=== PATIENT | female | born 1965 | race Caucasian/White ===

== ENCOUNTER 2019-05-10 09:53 | Emergency (ER) | payer SELFPAY ==
[~2019-05-10] VITALS: Ht 157.5 cm; Wt 84.1 kg
[2019-05-10 09:56] VITALS: BP 124/68; PULSE 68; RESP 17; Ht 157.5 cm; Wt 84.1 kg
--- NOTE | 2019-05-10 10:13 | ERD ---
ER Documentation Chief Complaint Chief Complaint RECHECK FOR ABCESS I&D 3 DAYS AGO HPI Patient is a 53-year-old female who presents for a wound check of her abscess. She had an incision and drainage done 3 days ago with packing placed. She came back for a wound check. She is currently taking antibiotics as well. She has had no fevers. ROS All systems reviewed and are negative except as per history of present illness. PMhx/Soc Medical and Surgical Hx: pt denies Medical Hx FmHx Family History: No diabetes Physical Exam Vitals Vital Signs Date Temp Pulse Resp B/P (MAP) Pulse Ox O2 O2 Flow FiO2 Time Delivery Rate 05/10/19 97.6 68 17 124/68 99 09:56 (86) Physical Exam Const: No acute distress Head: Atraumatic Eyes: Normal Conjunctiva ENT: Normal External Ears, Nose and Mouth. Neck: Full range of motion. No meningismus. Resp: Clear to auscultation bilaterally Cardio: Regular rate and rhythm, no murmurs Abd: Soft, non tender, non distended. Normal bowel sounds Skin: Recently cut abscess to the mid upper back with mild surrounding erythema and packing in place Back: No midline or flank tenderness Ext: No cyanosis, or edema Neur: Awake and alert Psych: Normal Mood and Affect Procedures/MDM Packing of the back abscess was removed by myself at the bedside without difficulty. There was no blood loss. Wound care and dressing was applied. Wound shows no evidence of infection, foreign body, neurologic injury, vascular injury, open joint or tendon laceration. Patient appropriate for outpatient follow up. Departure Diagnosis: Primary Impression: Abscess Condition: Fair Patient Instructions: Abscess, Incision And Drainage Referrals: Your doctor Additional Instructions: Llame al doctor nombrado scotty (Referral Sources) MAANA y susana nayeli SADE PARA DENTRO DE NAYELI SEMANA. Dgale a la secretaria que nosotros le instruimos hacer esta sade.Avise o llame si douglas condicin se empeora antes de la sade. MARK ROJO MD May 10, 2019 10:13
== END 2019-05-10 10:33 | disposition home or self-care (01) ==
LOC: FTE 09:53
DX: L02.212 Cutaneous abscess of back [any part, except buttock and flank] (principal)
CPT/HCPCS: 99281